=== PATIENT | male | born 1945 | race Hispanic/Latino ===

== ENCOUNTER → 2017-10-28 | Outpatient (CLI) | payer BC, MEDICARE ==
[~2017-10-28] MED LIST: ENAL20TA PO; ISOVUE-370 50ML VIAL IV ONE; SITA1TAB6 PO
== END | disposition home or self-care (01) ==
LOC: RAH 12:07
PROVIDERS: ATTEND Nurse Practitioner Adult Health
DX: G31.9 Degenerative disease of nervous system, unspecified (principal); M47.892 Other spondylosis, cervical region
CPT/HCPCS: 70470; 72040; Q9967

== ENCOUNTER → 2020-01-18 | Outpatient (CLI) | payer OTHER ==
[~2020-01-18] MED LIST changes: -ISOVUE-370 50ML VIAL IV ONE
== END | disposition home or self-care (01) ==
LOC: RAH 08:32
PROVIDERS: ATTEND Nurse Practitioner Adult Health
DX: Z13.6 Encounter for screening for cardiovascular disorders (principal)
CPT/HCPCS: 75571

== ENCOUNTER → 2021-01-27 | Outpatient (CLI) | payer OTHER ==
[~2021-01-27] MED LIST changes: -ENAL20TA PO; +ENAL20TA18 PO
== END | disposition home or self-care (01) ==
LOC: RAH 14:00
PROVIDERS: ATTEND Nurse Practitioner Adult Health
DX: Z13.6 Encounter for screening for cardiovascular disorders (principal)
CPT/HCPCS: 75571

== ENCOUNTER → 2023-08-30 | Outpatient (CLI) | payer BC, OTHER ==
[~2023-08-30] MED LIST changes: +ENAL-91 PO; -ENAL20TA18 PO
== END | disposition home or self-care (01) ==
LOC: RAH 15:19
PROVIDERS: ATTEND Nurse Practitioner Adult Health
DX: M48.02 Spinal stenosis, cervical region (principal); R20.2 Paresthesia of skin; M47.812 Spondylosis without myelopathy or radiculopathy, cervical region
CPT/HCPCS: 72040

== ENCOUNTER → 2023-09-21 | Outpatient (CLI) | payer BC, OTHER | END | disposition home or self-care (01) | LOC: RAH 12:09 | PROVIDERS: ATTEND Nurse Practitioner Adult Health | DX: M47.812 Spondylosis without myelopathy or radiculopathy, cervical region (principal); M50.30 Other cervical disc degeneration, unspecified cervical region; R53.1 Weakness; M48.061 Spinal stenosis, lumbar region without neurogenic claudication; M50.323 Other cervical disc degeneration at C6-C7 level | CPT/HCPCS: 72141 ==

== ENCOUNTER → 2024-08-07 | Outpatient (CLI) | payer OTHER | END | disposition home or self-care (01) | LOC: OIH 09:38 | PROVIDERS: ATTEND Nurse Practitioner Adult Health | DX: Z01.811 Encounter for preprocedural respiratory examination (principal); M47.815 Spondylosis without myelopathy or radiculopathy, thoracolumbar region; R05.9 Cough, unspecified | CPT/HCPCS: 71046 ==

== ENCOUNTER 2025-04-03 05:45 | Observation (INO) | payer OTHER ==
[2025-04-01 13:23] LABS: BASOPHILS # (AUTO) 0.08 K/uL (0.00-0.20); EOSINOPHILS # (AUTO) 0.16 K/uL (0.00-0.70); EOSINOPHILS % (AUTO) 1.9 % (0.0-8.0); HEMATOCRIT 49.5 % (42-54); IMMATURE GRANULOCYTE ABSOLUTE 0.02 K/uL (0-1); LYMPHOCYTES # (AUTO) 2.1 K/uL (1.0-4.8); LYMPHOCYTES % (AUTO) 25.5 % (21.0-51.0); MEAN CORPUSCULAR HEMOGLOBIN 30.4 pg (27.0-33.0); MEAN CORPUSCULAR HGB CONC 33.7 g/dL (32.0-36.0); MEAN CORPUSCULAR VOLUME 90.2 fL (79-99); MONOCYTES # (AUTO) 0.5 K/uL (0.1-1.0); MONOCYTES % (AUTO) 5.8 % (3.0-13.0); NEUTROPHILS # (AUTO) 5.5 K/uL (1.8-7.7); NEUTROPHILS % (AUTO) 65.6 % (40.0-77.0); PLATELET COUNT (AUTO) 195 K/uL (130-400); RED BLOOD CELL COUNT(AUTO) 5.49 MIL/uL (4.50-6.20); RED CELL DISTRIBUTION WIDTH 13.6 % (11.0-15.5); WHITE BLOOD COUNT (AUTO) 8.4 K/uL (4.8-10.8)
[2025-04-01 13:33] LABS: ALBUMIN 3.8 g/dL (3.5-5.0); INR 0.97 (0.85-1.15); POTASSIUM 4.7 mmol/L (3.5-5.1); PROTHROMBIN TIME 10.3 SEC (9.6-11.6)
[2025-04-01 13:34] VITALS: BP 121/80; PULSE 90; RESP 16; TEMP 97.5
--- NOTE | 2025-04-01 14:07 | NUR ---
PREOP INCENTIVE SPIROMETRY DONE BY YAO WHEELER
--- NOTE | 2025-04-02 17:21 | NUR ---
Discharge Planning SPoke to patient to verify discharge plan. Per patient, plan has changed to home with . Denies any DME. Agrees to any in-network HH/DME agency. Updated Dr. Beach. Dr. Baylee banks with change in plan. Faxed referral to [facility]. Per Boris with [facility], patient can be accepted, pending order. Spoke to Ubaldo with [facility] who states is OON with plan, but can accept if patient has met their deductible. CM to fax DME order to [facility]. Post-Operatively, CM to fax order for HH & DME, as well as Operative Note, PT Note, and any additional Clinicals needed. VIKY/CL done via telephone consent. Addendum: 04/02/25 at 1725 by LADONNA CHAVEZ Amended: Links added.
[~2025-04-03] VITALS: Ht 182.9 cm; Wt 107.5 kg
[2025-04-03] VITALS (31 sets, daily range): BP systolic 105–155; BP diastolic 53–91; PULSE 65–89; RESP 15–18; TEMP 97.3–98; O2SAT 94–96
[~2025-04-03 05:45] MED LIST changes: +ACET-2743 PO; +METF-444 PO; +ROSU5TAB51 PO; -SITA1TAB6 PO
[2025-04-03] MEDS ORDERED: ketaMINE 50MG/ML SYRINGE 50 MG/ML DISP.SYRIN ONE (06:43)
[2025-04-03] MEDS ORDERED: LIDOCAINE PF 100MG/5ML (2%) SYRINGE 5ML ONE (06:45)
[2025-04-03] MEDS ORDERED: FENTanyl CITRate PF 50 MCG/1 ML 2ML VIAL ONE (06:46)
[2025-04-03] MEDS ORDERED: rocuRONium bROMide 10MG/1ML 5ML VL ONE (06:46)
[2025-04-03] MEDS ORDERED: proPOFol 10 MG/ML 20ML VIAL IV ONE (06:46)
[2025-04-03] MEDS ORDERED: ROPivacaine 0.5% 5MG/ML 30ML ONE (06:47)
--- NOTE | 2025-04-03 07:11 | EKG ---
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
[2025-04-03] MEDS ORDERED: ondanSETRON 4MG INJ ONE (07:16)
[2025-04-03] MEDS ORDERED: dexaMETHasone SOD PHOSPHATE 10MG/ML 1ML VIAL ONE (07:16)
[2025-04-03] MEDS: TRANEXAMIC ACID 1000MG/10ML ONE (07:20)
[2025-04-03] MEDS: ceFAZolin SODIUM 2 GM VIAL ONE (07:25)
[2025-04-03] MEDS ORDERED: NEOSTIGMINE METHYLSULFATE 1MG/ML IV ONE (07:26)
[2025-04-03] MEDS ORDERED: GLYCOPYRROLATE 0.2 MG/ML 5 ML VIAL ONE (07:26)
[2025-04-03] MEDS ORDERED: FERROUS FUMARATE 324 MG TABLET PO PRN (07:30)
[2025-04-03] MEDS ORDERED: PoTASSium chloRIDE 20MEQ/100ML 100 ML IV PRN (07:30)
[2025-04-03] MEDS ORDERED: PoTASSium chloRIDE 20MEQ ER 20 MEQ ERTAB PO PRN (07:30)
[2025-04-03] MEDS ORDERED: CALCIUM CARB 500MG PO PRN (07:30)
[2025-04-03] MEDS ORDERED: HYDROcodone/APAP 5/325 1 TAB TABLET PO PRN (07:30)
[2025-04-03] MEDS ORDERED: PoTASSium chl 10% ELIXIR 20MEQ 20 MEQ/15 ML UDCUP PO PRN (07:30)
[2025-04-03] MEDS ORDERED: ondanSETRON 4MG INJ IVP PRN (07:30)
[2025-04-03] MEDS: ketOROlac 30MG VIAL (30MG/ML) ONE (07:48)
[2025-04-03] MEDS: ROPivacaine 0.5% 5MG/ML 30ML ONE (07:50)
[2025-04-03] MEDS: FENTanyl CITRate PF 50 MCG/1 ML 2ML VIAL ONE (09:51)
[2025-04-03] MEDS: ketOROlac 15MG/ML VIAL (15MG/ML) IV SCH (09:53)
[2025-04-03] MEDS: ketOROlac 15MG/ML VIAL (15MG/ML) ONE (09:53)
[2025-04-03] MEDS: traMADol HCL 50 MG TABLET ONE (10:43)
[2025-04-03] MEDS: GABApentin 100 MG CAPSULE PO SCH (10:43)
--- NOTE | 2025-04-03 10:55 | NUR ---
arrived from pacu patient alert and oriented x4, on room air, vitals stable, mild pain 3/10 to right knee, denies nausea at this time. contacted RT for incentive spirometer neurovascular assessment charted
[2025-04-03] MEDS: doCUSate SODIUM 100 MG CAP PO SCH (11:23)
[2025-04-03] MEDS: 0.9%NACL 1000ML 1,000 ML IV SCH (11:23)
[2025-04-03] MEDS: INSULIN humuLIN R 100 UNIT/ML 3ML SQ SCH (11:23)
[2025-04-03] MEDS: metFORmin HCL 500 MG TABLET PO SCH (11:24)
[2025-04-03] MEDS: LISINOPRIL 20 MG TABLET PO SCH (11:24)
[2025-04-03] MEDS: GABApentin 100 MG CAPSULE ONE (11:24)
[2025-04-03] MEDS: polyETHYLene GLYCol 3350 17 GM POWD.PACK PO SCH (11:24)
[2025-04-03] MEDS: GABAPENTIN 300 MG CAPSULE ONE (11:24)
[2025-04-03] MEDS: FAMOTIDINE 20MG VIAL IV ONE (11:25)
[2025-04-03] MEDS: 0.9%NACL 1000ML 1,000 ML IV ONE (11:25)
[2025-04-03] MEDS: acetaMINOPHEN 100 ML ONE (11:25)
--- NOTE | 2025-04-03 12:22 | HMCIMG ---
KNEE/PATELLA 1-2VWS RT HISTORY: Post surgery COMPARISON: None TECHNIQUE: 2 images of right knee were obtained status post surgery. FINDINGS: Total right knee replacement changes are seen. Soft tissue emphysema is seen consistent with postop changes. There is no acute displaced fracture or dislocation. Degenerative changes are seen. IMPRESSION: 1. Findings as described above.
[2025-04-03] MEDS ORDERED: ceFAZolin SODIUM 2 GM VIAL IVP SCH (12:30)
--- NOTE | 2025-04-03 12:58 | OP ---
Operative Note: DATE OF PROCEDURE: 04/03/25 PREOPERATIVE DIAGNOSIS: Right knee osteoarthritis. POSTOPERATIVE DIAGNOSIS: Right knee osteoarthritis. PROCEDURE PERFORMED: Right knee total knee arthroplasty. SURGEON: Isabela Beach MD LINEWORKER: Emy Hillman. ANESTHESIA: General with adductor canal block. ANESTHESIA: RECREATIONAL LEADER Doris Montemayor. ESTIMATED BLOOD LOSS: 50cc. COMPLICATIONS: None. DRAINS: None. SPECIMENS REMOVED: resected bone. Not sent to pathology. IMPLANTS: [employer]hew Journey II BCS size 7 Oxinium femur, size 6 tibial base plate, 35 mm patella, 10 mm polyethylene STATEMENT OF MEDICAL NECESSITY: The patient is a 79-year-old male who suffers from right knee osteoarthritis failing conservative management. After discussion of the risks, benefits, and alternatives with the patient, they voluntarily agreed to undergo the aforementioned procedure. DESCRIPTION OF PROCEDURE: Patient was properly identified in the preoperative holding area. Surgical site marking was verified and surgery consent reviewed. The patient was then taken to the operating room and placed in supine position on the OR table. After induction of general anesthesia, preoperative antibiotics were given, all bony prominences were well-padded, and a well padded tourniquet was applied but not inflated at this time. The right lower extremity was then prepped and draped in usual sterile fashion. Surgical time out was done verifying correct surgery, side, site, and location to be performed. We then began the procedure by exsanguinating the limb using an Esmarch and inflating the tourniquet to 350 mmHg. At this point, we made an anterior midline incision using a 10 blade, coming down sharply the level of the fascia. Skin flaps were elevated medially and laterally. We then obtained a clean 10 blade and performed a standard medial parapatellar arthrotomy. We excised the infrapatellar fat pad. We performed our soft tissue releases off of the tibia. We transected the ACL and removed the anterior portion of the medial & lateral meniscus. We then brought the knee into hyperflexion with the patella everted. We used our entry reamer to enter the femoral canal. We then placed our intramedullary cutting guide for our distal femoral cutting block. We then performed our distal femoral osteotomy ensuring appropriate rotation and removed the bony wafer. We then removed these pins and block and then used jig 2 to size the distal femur with the after mentioned size found. We then placed our 5-in-1 cutting block in 3 degrees of external rotation and took our 5 cuts ensuring to protect the patellar tendon and the collateral ligaments. We then removed the cutting block and our bony fragments using a curved osteotome. We then placed our PCL retractor subluxating the tibia anteriorly. Using an extra medullary tibial cutting guide, we hung the block for our proximal tibial cut taking 2 mm off the more diseased portion. Prior to pinning this block in place, we ensured appropriate varus/valgus alignment and posterior slope similar to the the [place] slope of the patient's knee. We then performed our proximal tibial osteotomy and removed the bony wafer using Bovie electrocautery to release any remaining soft tissue attachments. We then used our tibial sizing paddle and checked once more for varus & valgus alignment and found this to be appropriate. At this point, we pinned our tibial paddle in place. We then removed the PCL retractor and subluxated the tibia posteriorly while we placed our femoral trial component. We then finished preparing the notch with the reamer and box chisel. The notch portion of the trial femoral component was then placed. A posterior stabilized polyethylene, size 9 trial was placed. The knee was then taken through range of motion and found to have stable full range of motion. We then placed a bump under the ankle and everted the patella to perform our freehand cut of the undersurface the patella. We then sized our patella and reamed to the lug holes for this. We placed our trial patellar component and begin to take the knee through range of motion. The patella had appropriate tracking. At this point we began removing our trial components and punched the tibial keel prior to removing our tibial trial component. Final components were opened and cement was mixed on the back table while we injected local cocktail in the posterior capsule. We then thoroughly irrigated out the bone and dried the bony surfaces. We cemented our tibial component in place ensuring to remove excess cement and placed our trial polyethylene. We then cemented our femoral component in place once again taking time to ensure excess cement was removed leg was brought into full extension to help squeeze the excess cement from around the femoral component. We then brought the knee back in a flexion to remove this portion of the cement at this point we placed the ankle in a bump thoroughly irrigated off the patellar component and cemented our patellar component in standard fashion again removing excess cement. While we waited for the cement to cure, we thoroughly irrigated out the wound with normal saline. Once our cement had cured, we took the knee through a range of motion and found full and stable range of motion. We then elected to use the size 10 polyethylene and removed our trial polyethylene. We impacted our final polyethylene component in place in standard fashion and took the knee through a range of motion check once more. This was satisfactory so we began to repair the arthrotomy using #1 Vicryl in interrupted [id number] fashion. Subcutaneous tissue was repaired using 2-0 Vicryl. Running subcuticular 3-0 Monocryl stitch with Dermabond placed over this for the skin. We then applied a foam barrier dressing and a pressure dressing consisting of 4 x 4's fluffs and an Nishant wrap. The tourniquet was then deflated. Patient was awakened from anesthesia, and they were taken to the recovery room in stable condition. ISABELA BEACH MD Apr 03, 2025 12:58
--- NOTE | 2025-04-03 13:01 | DS ---
Discharge Summary Hospital Course Summary: The patient was admitted to the hospital postoperatively on 04/03/2025 after undergoing right total knee arthroplasty. They did well with routine postoperative pain control. They worked well with physical therapy. They developed some acute blood loss anemia but remained asymptomatic. The hospital course was otherwise uncomplicated. They were subsequently able to be discharged on postoperative day [] once discharge arrangements were made with home health physical therapy. Hand Profiler(s): None Procedure(s): Right total knee arthroplasty, 04/03/2025 Assessment/Plan: ASSESSMENT: Status post right total knee arthroplasty Acute blood loss anemia PLAN: See discharge instructions Discharge Instructions: Begin working with home health physical therapy. Dressing may be removed 04/05/25 and left open to air. Showers ok allowing soap and water to run over the wound. Pat dry. Do not submerge wound in tub/pool. Do not apply ointments. Do not apply Betadine. Do not apply peroxide. Ice packs to decrease pain/swelling. Prescriptions have been sent to the pharmacy: *Loraine 5/325mg 1-2 tab every 6 hours as needed for severe pain. (please call for refills) Cyclobenzaprine 5mg 1 tab every 8 hours as needed for muscle spasm pain. Gabapentin 100mg 1 tab every 8 hours (may discontinue if drowsy). Colace 100mg 1 tab orally twice a day as needed for constipation. Aspirin 325mg twice a day for 30 days to prevent blood clots. Call for a follow-up appointment in 2-3 weeks at [facility]. Home Medications: Reported Medications Rosuvastatin Calcium (Rosuvastatin Calcium) 5 Mg Tablet, 5 MG PO AM, TAB 04/01/25 Acetaminophen (Tylenol Extra Strength) 500 Mg Tablet, 1000 MG PO AD PRN for PAIN, TAB 04/01/25 Metformin HCl (Metformin HCl) 500 Mg Tablet, 500 MG PO AM, TAB 04/01/25 Enalapril Maleate (Enalapril Maleate) 20 Mg Tablet, 10 MG PO DAILY, TAB 02/18/16 Discontinued Reported Medications Sitagliptin Phos/Metformin HCl (Janumet 50-1,000 mg Tablet) 1 Each Tablet, 0.5 EACH PO DAILY, TAB 02/18/16 KATERYNA TRAMMELL MD Apr 03, 2025 13:01
--- NOTE | 2025-04-03 13:30 | NUR ---
ORTHO COORDINATOR: TEACHING REGARDING DVT AND PNEUMONIA PREVENTION, PAIN EXPECTATIONS AND PAIN MANAGEMENT. PATIENT IN BED, AT BEDSIDE. B SCD SLEEVES IN PLACE, NO SCD MACHINE IN ROOM. INCENTIVE SPIROMETER AT BEDSIDE, PENDING RESPIRATORY THERAPY RE-INSTRUCTION ON USE. PATIENT VERBALIZED FREQUENCY OF USE. PATIENT RETURN DEMONSTRATED PROPER FOOT FLEXION/EXTENSION EXERCISES. RATIONALE PROVIDED. NUMERIC PAIN SCALE REVIEWED. PATIENT INSTRUCTED TO PERFORM SELF PAIN ASSESSMENTS EVERY FOUR HOURS. HE IS TO ASSIGN A NUMERIC PAIN SCORE AND DESCRIBE THE TYPE OF PAIN AND CALL FOR THE PRIMARY NURSE. REMINDED THAT PAIN MEDICATION MUST BE REQUESTED. EXPECTATIONS SET FOR PATIENT TO SHOWER TOMORROW. RATIONALE PROVIDED. PATIENT INTENDS TO GO HOME WITH HOME HEALTH. PROCESS REVIEWED. PATIENT WILL NEED WALKER, TOILETS ARE HIGH. NO ADDITIONAL QUESTIONS/CONCERNS AT THIS TIME. 1340 REPORT TO MECHANICAL REPAIR WORKER REGARDING NEED FOR SCD MACHINE. MECHANICAL REPAIR WORKER ACKNOWLEDGED COMMUNICATION.
[2025-04-03] MEDS: ceFAZolin SODIUM 2 GM VIAL IVP SCH (16:38)
[2025-04-03] MEDS: HYDROcodone/APAP 5/325 1 TAB TABLET PO PRN (16:40)
--- NOTE | 2025-04-03 18:11 | NUR ---
STEPHANIE PLAN COMPLETED PACKET SENT TO [facility] [phone] [place] [facility] [phone]. Addendum: 04/03/25 at 1813 by ILIR JOHNSON RN CM Amended: Links added.
[2025-04-03] MEDS: atorVAStatin 20 MG TABLET PO SCH (19:49)
[2025-04-04] VITALS (7 sets, daily range): BP systolic 126–156; BP diastolic 72–82; PULSE 79–98; RESP 18–20; TEMP 97.9–98.6; O2SAT 93–99
[2025-04-04 04:51] LABS: HEMATOCRIT 41.5 % (42-54); MEAN CORPUSCULAR HEMOGLOBIN 30.9 pg (27.0-33.0); MEAN CORPUSCULAR VOLUME 93.5 fL (79-99); RED BLOOD CELL COUNT(AUTO) 4.44 MIL/uL (4.50-6.20); RED CELL DISTRIBUTION WIDTH 14.1 % (11.0-15.5); WHITE BLOOD COUNT (AUTO) 11.6 K/uL (4.8-10.8)
[2025-04-04 05:04] LABS: CREATININE 1.2 mg/dL (0.5-1.3); POTASSIUM 4.3 mmol/L (3.5-5.1)
[2025-04-04] MEDS ORDERED: ketOROlac 15MG/ML VIAL (15MG/ML) IV PRN (07:30)
--- NOTE | 2025-04-04 08:05 | PN ---
Ortho postop day one. This morning the patient is awake alert and oriented he is seated in a chair at the bedside. Reporting adequate pain control. Vital signs have been stable. Afebrile. He is voiding on his own. He is passing gas. Laboratory results reviewed. Noted to have a drop in hemoglobin and hematocrit as expected after total knee arthroplasty patient is currently asymptomatic. Operative findings discussed with the patient. The dressing is intact. Nishant bandage removed Ice is present to operative extremity. Gastrocnemius a soft nontender. Negative Homans. Bilateral SCD sleeves present. Ambulated with therapy yesterday and is pending further physical therapy. Anticipated discharge goal is HH/PT. Assessment: Status post right total knee arthroplasty. Asymptomatic acute postoperative blood loss anemia. Plan: Continue with Dr. Beach's total knee arthroplasty protocol and discharge planning. Asymptomatic acute postoperative blood loss anemia addressed with the protocol as necessary. Vitals/Labs Vital Signs Date Time Temp Pulse Resp B/P (MAP) Pulse Ox O2 Delivery O2 Flow Rate FiO2 04/04/25 04:00 98.1 82 20 131/77 97 Room Air 04/03/25 23:51 0 21 Laboratory Tests 04/04/25 04:43 Medications Current Medications Cefazolin Sodium 2 gm STK-MED ONCE .ROUTE Last administered on 04/03/25at 07:25; Start 04/03/25 at 06:22; Stop 04/03/25 at 06:22; Status DC Sodium Chloride 1,000 ml @ As Directed STK-MED ONCE IV; Start 04/03/25 at 06:22; Stop 04/03/25 at 06:22; Status DC Gabapentin 300 mg STK-MED ONCE .ROUTE; Start 04/03/25 at 06:34; Stop 04/03/25 at 06:34; Status DC Acetaminophen 100 ml @ As Directed STK-MED ONCE .ROUTE; Start 04/03/25 at 06:34; Stop 04/03/25 at 06:35; Status DC Famotidine 20 mg STK-MED ONCE IV; Start 04/03/25 at 06:34; Stop 04/03/25 at 06:35; Status DC Ropivacaine 150 mg STK-MED ONCE .ROUTE Last administered on 04/03/25at 07:50; Start 04/03/25 at 06:43; Stop 04/03/25 at 06:44; Status DC Ketamine HCl 50 mg STK-MED ONCE .ROUTE; Start 04/03/25 at 06:43; Stop 04/03/25 at 06:44; Status DC Lidocaine HCl 100 mg STK-MED ONCE .ROUTE; Start 04/03/25 at 06:45; Stop 04/03/25 at 06:46; Status DC Propofol 200 mg STK-MED ONCE IV; Start 04/03/25 at 06:46; Stop 04/03/25 at 06:46; Status DC Rocuronium [place] 50 mg STK-MED ONCE .ROUTE; Start 04/03/25 at 06:46; Stop 04/03/25 at 06:46; Status DC Fentanyl Citrate 100 mcg STK-MED ONCE .ROUTE; Start 04/03/25 at 06:46; Stop 04/03/25 at 06:46; Status DC Ropivacaine 150 mg STK-MED ONCE .ROUTE; Start 04/03/25 at 06:47; Stop 04/03/25 at 06:47; Status DC Ketorolac Tromethamine 30 mg STK-MED ONCE .ROUTE Last administered on 04/03/25at 07:48; Start 04/03/25 at 06:47; Stop 04/03/25 at 06:47; Status DC Tranexamic Acid 1,000 mg STK-MED ONCE .ROUTE Last administered on 04/03/25at 07:20; Start 04/03/25 at 06:49; Stop 04/03/25 at 06:49; Status DC Dexamethasone Sodium Phosphate 10 mg STK-MED ONCE .ROUTE; Start 04/03/25 at 07:16; Stop 04/03/25 at 07:16; Status DC Ondansetron HCl 4 mg STK-MED ONCE .ROUTE; Start 04/03/25 at 07:16; Stop 04/03/25 at 07:16; Status DC Glycopyrrolate 1 mg STK-MED ONCE .ROUTE; Start 04/03/25 at 07:26; Stop 04/03/25 at 07:26; Status DC Neostigmine Methylsulfate 10 mg STK-MED ONCE IV; Start 04/03/25 at 07:26; Stop 04/03/25 at 07:26; Status DC Sodium Chloride 1,000 ml @ 100 mls/hr Q10H IV Last administered on 04/03/25at 11:23; Start 04/03/25 at 07:30; Stop 04/04/25 at 07:29; Status DC Polyethylene Glycol 17 gm DAILY PO; Start 04/03/25 at 09:00; Stop 05/03/25 at 08:59 Bisacodyl 10 mg DAILY PRN RC; Start 04/06/25 at 07:30; Stop 05/06/25 at 07:29 Ketorolac Tromethamine 15 mg Q6H PRN IV; Start 04/04/25 at 07:30; Stop 04/09/25 at 07:29 Ferrous Fumarate 324 mg DAILY PRN PO; Start 04/03/25 at 07:30; Stop 05/03/25 at 07:29 Ondansetron HCl 4 mg Q6H PRN IVP; Start 04/03/25 at 07:30; Stop 05/03/25 at 07:29 Calcium Carbonate 500 mg Q12H PRN PO; Start 04/03/25 at 07:30; Stop 05/03/25 at 07:29 Insulin Human Regular INSULIN SLIDING SCAL... ACHS SQ; Start 04/03/25 at 07:30; Stop 05/03/25 at 07:29 Cefazolin Sodium 2 gm Q8H IVP; Start 04/03/25 at 12:30; Stop 04/03/25 at 11:27; Status DC Cyclobenzaprine HCl 5 mg Q8H PRN PO; Start 04/03/25 at 07:30; Stop 05/03/25 at 07:29 Gabapentin 100 mg TID PO Last administered on 04/03/25at 19:49; Start 04/03/25 at 09:00; Stop 05/03/25 at 08:59 Aspirin 325 mg DAILY PO; Start 04/04/25 at 09:00; Stop 05/04/25 at 08:59 Ketorolac Tromethamine 15 mg Q8H IV Last administered on 04/03/25at 23:27; Start 04/03/25 at 07:30; Stop 04/03/25 at 23:31; Status DC Docusate Sodium 100 mg BID PO Last administered on 04/03/25at 19:49; Start 04/03/25 at 09:00; Stop 05/03/25 at 08:59 Potassium Chloride 100 ml @ 100 mls/hr AD PRN IV; Start 04/03/25 at 07:30; Stop 05/03/25 at 07:29 Potassium Chloride 20 meq AD PRN PO; Start 04/03/25 at 07:30; Stop 05/03/25 at 07:29 Potassium Chloride 20 meq AD PRN PO; Start 04/03/25 at 07:30; Stop 05/03/25 at 07:29 Tramadol HCl 50 mg Q6H PRN PO; Start 04/03/25 at 07:30; Stop 04/08/25 at 07:29 Acetaminophen/ Hydrocodone Bitart Q4H PRN PO; Start 04/03/25 at 07:30; Stop 04/03/25 at 08:08; Status DC Metformin HCl 500 mg AM PO; Start 04/03/25 at 09:00; Stop 05/03/25 at 08:59 Lisinopril 20 mg DAILY PO; Start 04/03/25 at 09:00; Stop 05/03/25 at 08:59 Atorvastatin Calcium 20 mg HS PO Last administered on 04/03/25at 19:49; Start 04/03/25 at 21:00; Stop 05/03/25 at 20:59 Acetaminophen/ Hydrocodone Bitart 1 tab Q6H PRN PO; Start 04/03/25 at 08:30; Stop 04/08/25 at 08:29 Acetaminophen/ Hydrocodone Bitart 2 tab Q6H PRN PO Last administered on 04/03/25at 16:40; Start 04/03/25 at 08:30; Stop 04/08/25 at 08:29 Fentanyl Citrate 100 mcg STK-MED ONCE .ROUTE Last administered on 04/03/25at 09:51; Start 04/03/25 at 09:47; Stop 04/03/25 at 09:47; Status DC Ketorolac Tromethamine 15 mg STK-MED ONCE .ROUTE; Start 04/03/25 at 09:50; Stop 04/03/25 at 09:51; Status DC Tramadol HCl 50 mg STK-MED ONCE .ROUTE Last administered on 04/03/25at 10:43; Start 04/03/25 at 10:40; Stop 04/03/25 at 10:40; Status DC Gabapentin 100 mg STK-MED ONCE .ROUTE; Start 04/03/25 at 10:40; Stop 04/03/25 at 10:40; Status DC Cefazolin Sodium 2 gm Q8H IVP Last administered on 04/04/25at 01:32; Start 04/03/25 at 17:30; Stop 04/04/25 at 01:31; Status DC SHAE RILEY NP Apr 04, 2025 08:05
[2025-04-04] MEDS: ASPIRIN 325MG EC TAB PO SCH (08:12)
[2025-04-04] MEDS: CYCLOBENZAPRINE HCL 10 MG TABLET PO PRN (13:53)
[2025-04-04] MEDS: traMADol HCL 50 MG TABLET PO PRN (13:54)
--- NOTE | 2025-04-04 16:33 | NUR ---
DC PLAN [facility] [phone] PATIENT ACCEPTED TO [facility] HOME HEALTH GAVE TELEPHONE AND VERBAL TO DR. TRAMMELL. NURSE ALSO AWARE. [facility] DME PACKET SENT 3 TIMES. LEFT MESSAGE TO CALL BACK. CM CALLED WHEN NO CALL BACK ALREADY CLOSED AND ANSWERING SERVICES. CM WILL CALL IN THE MORNING. CM SPOKE TO PATIENT AND CM DIRECTOR IF DOES NOT GET DME BEFORE DC OKAY TO LEND WALKER WHILE PATIENT WAITING FOR HIS. Addendum: 04/04/25 at 1637 by ILIR JOHNSON RN CM Amended: Links added.
[2025-04-04] MEDS: HYDROcodone/APAP 5/325 1 TAB TABLET PO PRN (18:18)
[2025-04-05] VITALS: BP 122/67; PULSE 95; RESP 20; TEMP 98.6
[2025-04-05 04:00] VITALS: BP 124/70; PULSE 95; RESP 18; TEMP 98.7
[2025-04-05] MEDS ORDERED: CYCL-309 PO (07:22)
[2025-04-05] MEDS ORDERED: HYDR-4060 PO (07:22)
[2025-04-05] MEDS ORDERED: GABA100C PO (07:22)
[2025-04-05] MEDS ORDERED: DOCU-116 PO (07:22)
[2025-04-05] MEDS ORDERED: ASPI-891 PO (07:22)
[2025-04-05 08:00] VITALS: BP 124/66; PULSE 92; RESP 18; TEMP 98.7; O2SAT 93; O2SAT 98
[2025-04-05 12:01] VITALS: BP 123/65; PULSE 94; RESP 18; TEMP 98.3
--- NOTE | 2025-04-05 12:30 | NUR ---
DISCHARGE PT sitting in bed w/ eyes open 0 s/s of distress noted A&Ox4 denies pain, able to make needs know discharge instructions given to PT verbally and written. PT verbally acknowledged understanding, IV removed intact w/o complications. escorted to pov via wc by BOAT HOIST OPERATOR HELPER.
[2025-04-06] MEDS ORDERED: BisaCODYL 10 MG SUPP.RECT RC PRN (07:30)
== END 2025-04-05 12:30 | disposition home health service (06) ==
LOC: DAH 05:45 → DAHIP 05:46 → DAH 05:46 → 4DH 10:49
PROVIDERS: ADMIT Student in an Organized Health Care Education/Training Program; ATTEND Student in an Organized Health Care Education/Training Program
DX: M17.11 Unilateral primary osteoarthritis, right knee (principal); D62 Acute posthemorrhagic anemia; M24.561 Contracture, right knee; I10 Essential (primary) hypertension; E78.5 Hyperlipidemia, unspecified; E11.9 Type 2 diabetes mellitus without complications; Z79.899 Other long term (current) drug therapy
CPT/HCPCS: 82040; 80048 ×2; 85025; 85610; 85730; 84134; 86140; 36415 ×2; 87641; 27447; 82948 ×11; 73560; 97161; 97116 ×4; 93005; 85027; 97530 ×2; G0378 ×55; A4663; J3490 ×5; J3010 ×2; J1100; J7030; J2003; J2704; J2405; J1885 ×4; J2710; J2795 ×2; J0690 ×3; C1713 ×2; C1776 ×2; A4649 ×2; A4930; A6255; A5120; A4215; A4223 ×2; A4213; A4222; A4221; A4216; 96365; 96366; 96375; 96376

== ENCOUNTER 2025-09-30 07:38 | Observation (INO) | payer OTHER ==
[2025-09-26 11:23] LABS: IMMATURE GRANULOCYTE ABSOLUTE 0.01 K/uL (0-1); NUCLEATED RED BLOOD CELLS 0.0 % (0.0-0.19); PLATELET COUNT (AUTO) 207 K/uL (130-400); RED BLOOD CELL COUNT(AUTO) 5.33 MIL/uL (4.50-6.20); RED CELL DISTRIBUTION WIDTH 13.7 % (11.0-15.5); WHITE BLOOD COUNT (AUTO) 6.0 K/uL (4.8-10.8)
[2025-09-26 11:32] LABS: CREATININE 1.1 mg/dL (0.5-1.3); GLOMERULAR FILTR. RATE CALC 69.0 mL/min (>90); GLUCOSE,RANDOM 109.0 mg/dL (70-105); SODIUM SERUM 137.0 mmol/L (136-145); UREA NITROGEN, BLOOD 16.0 mg/dL (7-18)
[2025-09-26 11:33] LABS: INR 1.01 (0.85-1.15)
[2025-09-26 11:49] VITALS: BP 134/82; PULSE 68; RESP 17; TEMP 98.1
--- NOTE | 2025-09-26 11:57 | NUR ---
PREOP INCENTIVE SPIROMETRY TEACHING DONE BY YAO BROWN
--- NOTE | 2025-09-26 13:24 | EKG ---
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
--- NOTE | 2025-09-27 09:22 | NUR ---
RE: EKG/LABS REPORTED EKG RESULTS AND BMP TO DR BECKETT. RECEIVED ORDERS TO REPEAT BMP IN AM OF SURGERY.
[~2025-09-30] VITALS: Ht 182.9 cm; Wt 109.5 kg
[2025-09-30] VITALS (28 sets, daily range): BP systolic 81–125; BP diastolic 38–80; PULSE 71–100; RESP 15–20; TEMP 97.5–97.9; O2SAT 94–98
[~2025-09-30 07:38] MED LIST changes: -ACET-2743 PO; +CYCL-309 PO; +DOCU-116 PO; +GABA-529 PO; -METF-444 PO
[2025-09-30 08:11] LABS: CREATININE 1.1 mg/dL (0.5-1.3); GLOMERULAR FILTR. RATE CALC 69.0 mL/min (>90); GLUCOSE,RANDOM 109.0 mg/dL (70-105); SODIUM SERUM 140.0 mmol/L (136-145); UREA NITROGEN, BLOOD 17.0 mg/dL (7-18)
[2025-09-30] MEDS ORDERED: MIDAZOLAM HCL 1 MG/ML 2ML VIAL ONE (08:28)
[2025-09-30] MEDS ORDERED: TRANEXAMIC ACID 1000MG/10ML ONE (08:30)
[2025-09-30] MEDS ORDERED: LIDOCAINE PF 100MG/5ML (2%) SYRINGE 5ML ONE (08:31)
[2025-09-30] MEDS ORDERED: PoTASSium chl 10% ELIXIR 20MEQ 20 MEQ/15 ML UDCUP PO PRN (09:00)
[2025-09-30] MEDS ORDERED: CALCIUM CARB 500MG PO PRN (09:00)
[2025-09-30] MEDS ORDERED: FERROUS FUMARATE 324 MG TABLET PO PRN (09:00)
[2025-09-30] MEDS ORDERED: PoTASSium chloRIDE 20MEQ ER 20 MEQ ERTAB PO PRN (09:00)
[2025-09-30] MEDS: TRANEXAMIC ACID 1000MG/10ML IV ONE (09:09)
[2025-09-30] MEDS ORDERED: GLYCOPYRROLATE 0.2 MG/ML 5 ML VIAL ONE (09:14)
[2025-09-30] MEDS ORDERED: NEOSTIGMINE METHYLSULFATE 1MG/ML IV ONE (10:49)
--- NOTE | 2025-09-30 10:57 | OP ---
Operative Note: DATE OF PROCEDURE: 09/30/25 PREOPERATIVE DIAGNOSIS: Left knee osteoarthritis. POSTOPERATIVE DIAGNOSIS: Left knee osteoarthritis. PROCEDURE PERFORMED: Left knee total knee arthroplasty. SURGEON: Isabela Beach MD SUPERVISOR TUMBLING AND ROLLING: Emy Hillman. ANESTHESIA: General with adductor canal block. ANESTHESIA: JAZLYN Drummond. ESTIMATED BLOOD LOSS: 50cc. COMPLICATIONS: None. DRAINS: None. SPECIMENS REMOVED: resected bone. Not sent to pathology. IMPLANTS: [employer] II BCS size 7 Oxinium femur, size 6 tibial base plate, 35 mm patella, 9 mm polyethylene STATEMENT OF MEDICAL NECESSITY: The patient is a 79-year-old male who suffers from left knee osteoarthritis failing conservative management. After discussion of the risks, benefits, and alternatives with the patient, they voluntarily agreed to undergo the aforementioned procedure. DESCRIPTION OF PROCEDURE: Patient was properly identified in the preoperative holding area. Surgical site marking was verified and surgery consent reviewed. The patient was then taken to the operating room and placed in supine position on the OR table. After induction of general anesthesia, preoperative antibiotics were given, all bony prominences were well-padded, and a well padded tourniquet was applied but not inflated at this time. The left lower extremity was then prepped and draped in usual sterile fashion. Surgical time out was done verifying correct surgery, side, site, and location to be performed. We then began the procedure by exsanguinating the limb using an Esmarch and inflating the tourniquet to 350 mmHg. At this point, we made an anterior midline incision using a 10 blade, coming down sharply the level of the fascia. Skin flaps were elevated medially and laterally. We then obtained a clean 10 blade and performed a standard medial parapatellar arthrotomy. We excised the i nfrapatellar fat pad. We performed our soft tissue releases off of the tibia. We transected the ACL and removed the anterior portion of the medial & lateral meniscus. We then brought the knee into hyperflexion with the patella everted. We used our entry reamer to enter the femoral canal. We then placed our intramedullary cutting guide for our distal femoral cutting block. We then performed our distal femoral osteotomy ensuring appropriate rotation and removed the bony wafer. We then removed these pins and block and then used jig 2 to size the distal femur with the after mentioned size found. We then placed our 5-in-1 cutting block in 4 degrees of external rotation and took our 5 cuts ensuring to protect the patellar tendon and the collateral ligaments. We then removed the cutting block and our bony fragments using a curved osteotome. We then placed our PCL retractor subluxating the tibia anteriorly. Using an extra medullary tibial cutting guide, we hung the block for our proximal tibial cut taking 2 mm off the more diseased portion. Prior to pinning this block in place, we ensured appropriate varus/valgus alignment and posterior slope similar to the galena slope of the patient's knee. We then performed our proximal tibial osteotomy and removed the bony wafer using Bovie electrocautery to release any remaining soft tissue attachments. We then used our tibial sizing paddle and checked once more for varus & valgus alignment and found this to be appropriate. At this point, we pinned our tibial paddle in place. We then removed the PCL retractor and subluxated the tibia posteriorly while we placed our femoral trial component. We then finished preparing the notch with the reamer and box chisel. The notch portion of the trial femoral component was th en placed. A posterior stabilized polyethylene, size 9 trial was placed. The knee was then taken through range of motion and found to have stable full range of motion. We then placed a bump under the ankle and everted the patella to perform our freehand cut of the undersurface the patella. We then sized our patella and reamed to the lug holes for this. We placed our trial patellar component and begin to take the knee through range of motion. The patella had mild lateral tracking that improved after a small lateral release. At this point we began removing our trial components and punched the tibial keel prior to removing our tibial trial component. Final components were opened and cement was mixed on the back table while we injected local cocktail in the posterior capsule. We then thoroughly irrigated out the bone and dried the bony surfaces. We cemented our tibial component in place ensuring to remove excess cement and placed our trial polyethylene. We then cemented our femoral component in place once again taking time to ensure excess cement was removed leg was brought into full extension to help squeeze the excess cement from around the femoral component. We then brought the knee back in a flexion to remove this portion of the cement at this point we placed the ankle in a bump thoroughly irrigated off the patellar component and cemented our patellar component in standard fashion again removing excess cement. While we waited for the cement to cure, we thoroughly irrigated out the wound with normal saline. Once our cement had cured, we took the knee through a range of motion and found full and stable range of motion. We then elected to use the size 9 polyethylene and removed our trial polyethylene. We impacted our final polyethylene component in place in standard fashion and took the knee through a range of motion check once more. This was satisfactory so we began to repair the arthrotomy using #5 Ethibond and #1 Vicryl in interrupted [id number] fashion. Subcutaneous tissue was repaired using 2-0 Vicryl. Running subcuticular 3-0 Monocryl stitch with Dermabond placed over this for the skin. We then applied a foam barrier dressing and a pressure dressing consisting of 4 x 4's fluffs and an Nishant wrap. The tourniquet was then deflated. Patient was awakened from anesthesia, and they were taken to the recovery room in stable condition. ISABELA BEACH MD Sep 30, 2025 10:57
[2025-09-30] MEDS ORDERED: PROMETHAZINE HCL 25 MG/ML 1ML AMPULE IM PRN (12:00)
--- NOTE | 2025-09-30 12:45 | NUR ---
PT ARRIVED TO UNIT S/P LEFT KNEE ARTHROPLASTY, PT AT BEDSIDE. PT AAOX3, DENIES PAIN AT THIS TIME. PT CONNECTED TO POST OP VITALS AND SCD'S APPLIED. WILL CONTINUE TO MONITOR.
[2025-09-30] MEDS: 0.9%NACL 1000ML 1,000 ML IV SCH (12:50)
--- NOTE | 2025-09-30 13:01 | HMCIMG ---
EXAM: CR left Knee, 2 View. CLINICAL HISTORY: S/P LEFT TKA SURGERY COMPARISON: None provided. FINDINGS: BONES: No acute fracture or aggressive appearing osseous lesion. JOINTS: Left total knee arthroplasty is in near anatomic alignment. Appropriate postsurgical changes about the left knee joint. SOFT TISSUES: The soft tissues are unremarkable. IMPRESSION: 1. Left total knee arthroplasty in near anatomic alignment with appropriate postsurgical changes. 2. No acute findings. /[place]
--- NOTE | 2025-09-30 21:30 | NUR ---
Update Patient ambulated to the restroom. Patient passed gas, no BM at this time. Patient sat in the chair for approximately 45 minutes. Patient was then assisted back to bed and connected to SCDs.
[2025-09-30] MEDS: 0.9%NACL 1000ML 1,000 ML IV ONE (21:44)
[2025-09-30] MEDS: CYCLOBENZAPRINE HCL 10 MG TABLET PO PRN (22:44)
[2025-10-01] VITALS (8 sets, daily range): BP systolic 104–120; BP diastolic 57–80; PULSE 77–94; RESP 16–20; TEMP 97.3–98.6; O2SAT 92–97
[2025-10-01 04:24] LABS: NUCLEATED RED BLOOD CELLS 0.0 % (0.0-0.19); PLATELET COUNT (AUTO) 207.0 K/uL (130-400); RED BLOOD CELL COUNT(AUTO) 4.31 MIL/uL (4.50-6.20); RED CELL DISTRIBUTION WIDTH 13.4 % (11.0-15.5); WHITE BLOOD COUNT (AUTO) 12.5 K/uL (4.8-10.8)
[2025-10-01 04:38] LABS: CREATININE 1.1 mg/dL (0.5-1.3); GLOMERULAR FILTR. RATE CALC 69.0 mL/min (>90); GLUCOSE,RANDOM 120.0 mg/dL (70-105); SODIUM SERUM 138.0 mmol/L (136-145); UREA NITROGEN, BLOOD 14.0 mg/dL (7-18)
--- NOTE | 2025-10-01 06:33 | NUR ---
Update Patient ambulated to the restroom. Patient is sitting up in the chair. ADALID wrap was removed.
--- NOTE | 2025-10-01 08:13 | PN ---
Ortho postop day one. This morning the patient is awake alert and oriented. He is seated out of bed in a chair reporting adequate pain control. is at the bedside. Laboratory results reviewed. Noted to have a drop in hemoglobin and hematocrit as expected after TKA. Patient is currently asymptomatic. We will continue to observe and address per protocol as necessary. Voiding on his own without difficulty passing gas. Vital signs have remained stable. He is afebrile. Operative findings discussed with the patient. Incentive spirometry reinforced. Nishant bandage removed. Dressing intact. Gastrocnemius soft nontender. Negative Homans. SCD sleeves present. Instructed to alternate extension and flexion using footstool while seated and ankle pumps. Ambulated in the confines of his room yesterday is pending further physical therapy this morning. Anticipated discharge goal is home health/PT. Assessment: Status post left total knee arthroplasty . Asymptomatic acute postoperative blood loss anemia. Plan: Continue with Dr. Beach's TKA protocol and discharge planning. Asymptomatic acute postoperative blood loss anemia addressed with the protocol as necessary Vitals/Labs Vital Signs Date Time Temp Pulse Resp B/P (MAP) Pulse Ox O2 Delivery O2 Flow Rate FiO2 10/01/25 04:00 97.9 89 16 116/57 97 Room Air 09/30/25 21:19 0 21 Laboratory Tests 10/01/25 04:00 Medications Current Medications Cefazolin Sodium 2 gm STK-MED ONCE .ROUTE; Start 09/30/25 at 07:37; Stop 09/30/25 at 07:38; Status DC Sodium Chloride 1,000 ml @ As Directed STK-MED ONCE IV; Start 09/30/25 at 07:38; Stop 09/30/25 at 07:38; Status DC Propofol 200 mg STK-MED ONCE IV; Start 09/30/25 at 08:27; Stop 09/30/25 at 08:28; Status DC Midazolam HCl 2 mg STK-MED ONCE .ROUTE; Start 09/30/25 at 08:28; Stop 09/30/25 at 08:28; Status DC Fentanyl Citrate 100 mcg STK-MED ONCE .ROUTE; Start 09/30/25 at 08:28; Stop 09/30/25 at 08:28; Status DC Rocuronium [place] 50 mg STK-MED ONCE .ROUTE; Start 09/30/25 at 08:28; Stop 09/30/25 at 08:28; Status DC Tranexamic Acid 1,000 mg STK-MED ONCE .ROUTE; Start 09/30/25 at 08:30; Stop 09/30/25 at 08:30; Status DC Ketorolac Tromethamine 30 mg STK-MED ONCE .ROUTE; Start 09/30/25 at 08:30; Stop 09/30/25 at 08:30; Status DC Ropivacaine 150 mg STK-MED ONCE .ROUTE; Start 09/30/25 at 08:30; Stop 09/30/25 at 08:30; Status DC Lidocaine HCl 100 mg STK-MED ONCE .ROUTE; Start 09/30/25 at 08:31; Stop 09/30/25 at 08:31; Status DC Ondansetron HCl 4 mg STK-MED ONCE .ROUTE; Start 09/30/25 at 08:31; Stop 09/30/25 at 08:31; Status DC Dexamethasone Sodium Phosphate 10 mg STK-MED ONCE .ROUTE; Start 09/30/25 at 08:31; Stop 09/30/25 at 08:31; Status DC Phenylephrine HCl 10 mg STK-MED ONCE IV; Start 09/30/25 at 08:31; Stop 09/30/25 at 08:31; Status DC Ropivacaine 150 mg STK-MED ONCE IJ Last administered on 09/30/25at 08:36; Start 09/30/25 at 08:36; Stop 09/30/25 at 08:40; Status DC Ketorolac Tromethamine 30 mg STK-MED ONCE IVP Last administered on 09/30/25at 08:37; Start 09/30/25 at 08:37; Stop 09/30/25 at 08:40; Status DC Ropivacaine 150 mg STK-MED ONCE .ROUTE; Start 09/30/25 at 08:52; Stop 09/30/25 at 08:52; Status DC Sodium Chloride 1,000 ml @ 100 mls/hr Q10H IV Last administered on 09/30/25at 21:19; Start 09/30/25 at 09:00; Stop 10/01/25 at 04:01; Status DC Polyethylene Glycol 17 gm DAILY PO; Start 09/30/25 at 09:00; Stop 10/30/25 at 08:59 Bisacodyl 10 mg DAILY PRN RC; Start 10/03/25 at 09:00; Stop 11/02/25 at 08:59 Ketorolac Tromethamine 15 mg Q6H PRN IV; Start 10/01/25 at 09:00; Stop 10/06/25 at 08:59 Ferrous Fumarate 324 mg DAILY PRN PO; Start 09/30/25 at 09:00; Stop 10/30/25 at 08:59 Ondansetron HCl 4 mg Q6H PRN IVP; Start 09/30/25 at 09:00; Stop 10/30/25 at 08:59 Calcium Carbonate 500 mg Q12H PRN PO; Start 09/30/25 at 09:00; Stop 10/30/25 at 08:59 Cefazolin Sodium 2 gm Q8H IVP; Start 09/30/25 at 14:00; Stop 09/30/25 at 18:15; Status DC Cyclobenzaprine HCl 5 mg Q8H PRN PO Last administered on 09/30/25at 22:44; Start 09/30/25 at 09:00; Stop 10/30/25 at 08:59 Gabapentin 100 mg TID PO Last administered on 09/30/25at 21:19; Start 09/30/25 at 09:00; Stop 10/30/25 at 08:59 Aspirin 325 mg DAILY PO; Start 10/01/25 at 09:00; Stop 10/31/25 at 08:59 Ketorolac Tromethamine 15 mg Q8H IV Last administered on 10/01/25at 01:53; Start 09/30/25 at 09:00; Stop 10/01/25 at 01:01; Status DC Docusate Sodium 100 mg BID PO Last administered on 09/30/25at 21:18; Start 09/30/25 at 09:00; Stop 10/30/25 at 08:59 Potassium Chloride 100 ml @ 100 mls/hr AD PRN IV; Start 09/30/25 at 09:00; Stop 10/30/25 at 08:59 Potassium Chloride 20 meq AD PRN PO; Start 09/30/25 at 09:00; Stop 10/30/25 at 08:59 Potassium Chloride 20 meq AD PRN PO; Start 09/30/25 at 09:00; Stop 10/30/25 at 08:59 Tramadol HCl 50 mg Q6H PRN PO Last administered on 10/01/25at 06:19; Start 09/30/25 at 09:00; Stop 10/05/25 at 08:59 Acetaminophen/ Hydrocodone Bitart Q4H PRN PO; Start 09/30/25 at 09:00; Stop 10/05/25 at 08:59 Lisinopril 10 mg DAILY PO; Start 10/01/25 at 09:00; Stop 10/31/25 at 08:59 Atorvastatin Calcium 10 mg AM PO; Start 10/01/25 at 09:00; Stop 10/31/25 at 08:59 Pantoprazole Sodium 40 mg DAILY PO; Start 09/30/25 at 09:00; Stop 10/30/25 at 08:59 Acetaminophen 100 ml @ As Directed STK-MED ONCE .ROUTE; Start 09/30/25 at 09:10; Stop 09/30/25 at 09:10; Status DC Ketamine HCl 50 mg STK-MED ONCE .ROUTE; Start 09/30/25 at 09:10; Stop 09/30/25 at 09:11; Status DC Glycopyrrolate 1 mg STK-MED ONCE .ROUTE; Start 09/30/25 at 09:14; Stop 09/30/25 at 09:15; Status DC Ephedrine Sulfate 50 mg STK-MED ONCE .ROUTE; Start 09/30/25 at 09:15; Stop 09/30/25 at 09:16; Status DC Cefazolin Sodium 2 gm STK-MED ONCE IVPB Last administered on 09/30/25at 08:59; Start 09/30/25 at 08:59; Stop 09/30/25 at 09:30; Status DC Tranexamic Acid 2,000 mg STK-MED ONCE IV Last administered on 09/30/25at 09:09; Start 09/30/25 at 09:09; Stop 09/30/25 at 09:30; Status DC Rocuronium [place] 50 mg STK-MED ONCE .ROUTE; Start 09/30/25 at 10:13; Stop 09/30/25 at 10:13; Status DC Fentanyl Citrate 100 mcg STK-MED ONCE .ROUTE; Start 09/30/25 at 10:14; Stop 09/30/25 at 10:14; Status DC Neostigmine Methylsulfate 10 mg STK-MED ONCE IV; Start 12/15/25 at 10:49; Stop 09/30/25 at 10:49; Status DC Ondansetron HCl 4 mg AD PRN IVP; Start 09/30/25 at 12:00; Stop 09/30/25 at 12:23; Status DC Metoclopramide HCl 10 mg AD PRN IVP; Start 09/30/25 at 12:00; Stop 09/30/25 at 12:23; Status DC Promethazine HCl 25 mg AD PRN IM; Start 09/30/25 at 12:00; Stop 09/30/25 at 12:23; Status DC Ketorolac Tromethamine 30 mg AD PRN IV; Start 09/30/25 at 12:00; Stop 09/30/25 at 12:23; Status DC Morphine Sulfate 2 mg AD PRN IVP; Start 09/30/25 at 12:00; Stop 09/30/25 at 12:23; Status DC Fentanyl Citrate 25 mcg Q5MIN PRN IVP Last administered on 09/30/25at 11:51; Start 09/30/25 at 12:00; Stop 09/30/25 at 12:23; Status DC Naloxone HCl 0.1 mg AD PRN IVP; Start 09/30/25 at 12:00; Stop 09/30/25 at 12:23; Status DC Fentanyl Citrate 100 mcg STK-MED ONCE .ROUTE; Start 09/30/25 at 11:50; Stop 09/30/25 at 11:50; Status DC Ketorolac Tromethamine 15 mg STK-MED ONCE .ROUTE; Start 09/30/25 at 12:11; Stop 09/30/25 at 12:11; Status DC Cefazolin Sodium 2 gm Q8H IVP Last administered on 10/01/25at 02:40; Start 09/30/25 at 18:30; Stop 10/01/25 at 02:31; Status DC SHAE RILEY PHP DEVELOPER Oct 01, 2025 08:13
[2025-10-01] MEDS: ASPIRIN 325MG EC TAB PO SCH (08:55)
[2025-10-01] MEDS: LISINOPRIL 10 MG TABLET PO SCH (08:57)
[2025-10-01] MEDS: HYDROcodone/APAP 5/325 1 TAB TABLET PO PRN (08:58)
--- NOTE | 2025-10-01 16:20 | NUR ---
ORTHO COORDINATOR: TEACHING REGARDING DVT AND PNEUMONIA PREVENTION, PAIN EXPECTATIONS AND PAIN MANAGEMENT. PATIENT IN BED, B SCD SLEEVES APPLIED AND FUNCTIONING. SPOUSE AT BEDSIDE. INCENTIVE SPIROMETER NEAR CLOSET. PATIENT RETURN DEMONSTRATED PROPER USE OF INCENTIVE SPIROMETER. PATIENT VERBALIZED PROPER FREQUENCY OF USE. PATIENT RETURN DEMONSTRATED PROPER FOOT FLEXION AND EXTENSION EXERCISES, RATIONALE FOR PERFORMING REVIEWED. PAIN EXPECTATIONS REALISTIC, PATIENT HAD R TKA IN MARCH OF 2025. PATIENT PAIN IS CONTROLLED. PATIENT INTENDS TO DISCHARGE TO HOME WITH HOME HEALTH PHYSICAL THERAPY, UNDERSTANDS PROCESS. PATIENT ENCOURAGED ONCE DISCHARGED TO CONTINUE PREMEDICATING FOR PHYSICAL THERAPY AND PERIODS OF HIGH ACTIVITY, TO CONTINUE USE OF INCENTIVE SPIROMETER UNTIL PRESURGERY ACTIVITY LEVEL ACHIEVED, TO CONTINUE TO AMBULATE, APPLY ICE AND REMAIN HYDRATED. PATIENT REPORTS PASSING GAS, NO BOWEL MOVEMENT. PATIENT REPORTS SHOWERING TODAY. PATIENT VERBALIZED UNDERSTANDING TO ALL INSTRUCTIONS. NO ADDITIONAL QUESTIONS/CONCERNS AT THIS TIME.
[2025-10-01] MEDS ORDERED: PANT40TA PO (18:18)
[2025-10-01] MEDS ORDERED: GABA100C PO (18:18)
[2025-10-01] MEDS ORDERED: ASPI-891 PO (18:18)
[2025-10-01] MEDS ORDERED: DOCU-116 PO (18:18)
[2025-10-01] MEDS ORDERED: HYDR-4060 PO (18:18)
[2025-10-01] MEDS ORDERED: CYCL-309 PO (18:18)
[2025-10-02] VITALS: BP 116/73; PULSE 93; RESP 20; TEMP 98.1
[2025-10-02 04:00] VITALS: BP 135/73; PULSE 98; RESP 19; TEMP 99.1
[2025-10-02 04:33] VITALS: TEMP 98.6
--- NOTE | 2025-10-02 05:56 | NUR ---
UPDATE PT. SITTING IN CHAIR
[2025-10-02 08:10] VITALS: O2SAT 96
[2025-10-02 08:40] VITALS: BP 126/73; PULSE 97; RESP 18; TEMP 97.9
--- NOTE | 2025-10-02 09:45 | NUR ---
ASSESSED PAIN LEVEL OF PATIENT. PATIENT STATED PAIN LEVEL OF 4/10. PATIENT REFUSED PAIN MEDICATION. PATIENT STATED, "I WANT TO WAIT UNTIL AFTER PHYSICAL THERAPY FOR ANY PAIN MEDICATION." ADVISED AND ENCOURAGED PATIENT TO CALL NURSE WHEN PAIN LEVEL IS PRESENT.
--- NOTE | 2025-10-02 11:37 | NUR ---
PER PATIENT, PATIENT HAS NOT HAD A BOWEL MOVEMENT SINCE BEFORE SURGERY 09/30/2025. EDUCATED PATIENT ON ADMINISTERING DULCOLAX RECTALLY TO HAVE BM. PATIENT REFUSED MEDICATION, AND STATED "I AM OKAY GOING HOME WITHOUT HAVING A BOWEL MOVEMENT. I WILL WAIT AT HOME TO HAVE ONE." PATIENT STATES TO PASS GAS, NO ABDOMINAL PAIN, AND NO NAUSEA OR VOMITING. NOTIFIED DR. TRAMMELL. DR. TRAMMELL AWARE.
[2025-10-02 12:11] VITALS: BP 132/68; PULSE 93; RESP 18; TEMP 98.6
--- NOTE | 2025-10-02 12:26 | NUR ---
REPORT GIVEN TO FERCHO NIEVES REGARDING PATIENT'S RECEIVING [facility].
--- NOTE | 2025-10-02 12:30 | NUR ---
DC PLAN VISITED WITH PATIENT. PATIENT LIVES WITH SPOUSE. INDEPENDENT ABLE TO PERFORM ADLS. PATIENT HAS NO SERVICES. PATIENT HAS A WALKER AND WHEEL CHAIR. HAD PREVIOUS EQUIPMENT FORM PREVIOUS KNEE. VIKY SIGNED FOR [facility]. GAVE NUMBER OF [phone] SAID PT ABE MARES WAS THE THERAPIST THEY HAD BEFORE SPOKE TO [facility] SAID THERAPIST STILL WORK FOR THEM. PACKET SENT. CALLED SAID PATIENT ACCEPTED.
--- NOTE | 2025-10-02 12:37 | NUR ---
REMOVED DRESSING ON LEFT KNEE. MINIMAL SEROUS DRAINAGE NOTED. NO PAIN OR CONCERNS REPORTED AT THIS TIME. INCISION ON LEFT KNEE OPEN TO AIR.
--- NOTE | 2025-10-02 13:20 | NUR ---
DISCHARGE DISCHARGE PATIENT PER MD. PERIPHERIAL IV REMOVED, CATHETER INTACT. DISCHARGE INSTRUCTIONS GIVEN. PATIENT AWARE OF NEW PRESCRIPTIONS SENT TO PREFERRED PHARMACY. NO PAIN REPORTED AT THIS TIME. PATIENT VERBALIZED UNDERSTANDING. PATIENT LEFT VIA WHEELCHAIR TO PRIVATE CAR.
== END 2025-10-02 13:20 | disposition home or self-care (01) ==
LOC: DAH 07:38 → DAHIP 08:58 → 4DH 12:45
PROVIDERS: ADMIT Student in an Organized Health Care Education/Training Program; ATTEND Student in an Organized Health Care Education/Training Program
DX: M17.12 Unilateral primary osteoarthritis, left knee (principal); G89.18 Other acute postprocedural pain; D62 Acute posthemorrhagic anemia; I10 Essential (primary) hypertension; E78.5 Hyperlipidemia, unspecified; E11.9 Type 2 diabetes mellitus without complications; Z79.899 Other long term (current) drug therapy
CPT/HCPCS: 82040; 80048 ×3; 85025; 85610; 85730; 84134; 86140; 36415 ×3; 93005; 87641; 96374; 96375; 27447; 64447; 82948 ×7; 73560; 97161; 97116 ×4; 96376; 85027; 97530 ×3; G0378 ×52; A4600; A4223 ×2; A4663; J3010 ×3; J3490 ×7; J1100; J7030; J2003; J2250; J2704; J2405; J1885 ×5; J2710; J2795 ×3; J2371; J0690 ×4; C1713 ×2; A4649 ×2; C1776; A4930; A6255; A5120; A4215; A4213; A4222; A4221; A4216